=== PATIENT | female | born 1975 | race Caucasian/White ===

== ENCOUNTER → 2020-04-25 | Outpatient (CLI) | payer OTHER ==
[2014-06-13 22:59] VITALS: BP 123/82
[~2020-04-25] MED LIST: DICY20TA3 PO; ESOM20CA PO; FLUO40CA9 PO
--- NOTE | 2020-04-25 11:34 | RAD ---
EXAM: DUAL ENERGY X-RAY ABSORPTIOMETRY (DEXA). HISTORY: Postmenopausal screening. FINDINGS: The lowest measured T-score is -1.8 in the right femoral neck, based on a bone mineral dens ity of 0.722 g/cm^2. Refer to the worksheets for full detail. No comparison examinations are available. IMPRESSION: Low bone mass. Bone mineral density yields a T-score between -1.0 and -2.5. Fracture risk is increase d. FRAX was not calculated. METHODOLOGY: Dual energy x-ray absorptiometry was performed to measure bone mineral density. The foll owing analysis is based on the 2019 Official Positions of the International Society for Clinical Dens itometry: Measurements of the hips and the average of L1-L4 are preferred. When the spine and/or hip cannot be feasibly measured or interpreted, or in the setting of hyperparathyroidism, distal radial bone minera l density may be measured. The lumbar spine T-score is based on the average bone mineral density of L1-L4. In the setting of art ifact or anatomic abnormality, some lumbar levels may be excluded, and the remaining levels used for calculation. A single lumbar level is not used for diagnosis, and if only a single level is available for assessment, another anatomic site will be used to assign a diagnosis. The hip T-score is based on the bone mineral density measurement of the femoral neck or total proxima l femur of either side, whichever is lowest. Bilateral mean values are not used for diagnosis. The forearm T-score is derived from 33% of the distal radius of the nondominant forearm. For postmenopausal and perimenopausal women, and men age 50 or older, of all ethnic groups, T-scores are calculated through comparison of the current measurement with the NHANES III database standard fo r females aged 20-29 years. The lowest T-score of the evaluated anatomic sites is used to a ssign a diagnosis based on the World Health Organization densitometric classification. In premenopausal females and males younger than age 50, a Z-score is calculated based on population s pecific reference data for patient sex and self-reported ethnicity. Electronically signed by: Taina Oglesby MD (04/25/2020 11:32 AM) [id number]
--- NOTE | 2020-04-28 10:26 | RAD ---
DATE: 04/25/2020 9:19 AM EXAM: MAMMO SAMUEL SCREENING BILATERAL HISTORY: Screening COMPARISON: None. This will serve as a new baseline. Bilateral CC and MLO views of the breasts were performed. Bilateral implant displaced CC and MLO views were also obtained. Bilateral breast tomosynthesis was performed in implant displaced CC and MLO projections. This study was interpreted with the benefit of Computerized Aided Detection (CAD). FINDINGS: Breast Density: HETERO The breast parenchyma Is heterogeneously dense, which could reduce sensitivity of mammography. Breast parenchyma level C Bilateral subpectoral silicone implants are present. No suspicious masses, microcalcifications or architectural distortion is present to suggest malignancy in either breast. The visualized axillae are unremarkable. IMPRESSION: No mammographic evidence of malignancy. BI-RADS CATEGORY: 1 NEGATIVE RECOMMENDED FOLLOW-UP: 12M 12 MONTH FOLLOW-UP Annual screening mammography is recommended, unless clinically indicated sooner based on symptoms or change in physical exam. PQRS compliance statement: Patient information was entered into a reminder system with a target due date for the next mammogram. Mammography is a sensitive method for finding small breast cancers, but it does not detect them all and is not a substitute for careful clinical examination. A negative mammogram does not negate a clinically suspicious finding and should not result in delay in biopsying a clinically suspicious abnormality. "Our facility is accredited by the [employer] Mammography Program."
== END ==
LOC: MAMMO 08:14
PROVIDERS: ATTEND Physician Assistant Medical
DX: Z12.31 Encounter for screening mammogram for malignant neoplasm of breast (principal); N95.8 Other specified menopausal and perimenopausal disorders
CPT/HCPCS: 77063; 77067; 77080

== ENCOUNTER 2021-03-23 09:28 | Emergency (ER) | payer OTHER ==
[~2021-03-23] VITALS: Ht 157.5 cm; Wt 60.0 kg
[~2021-03-23 09:28] MED LIST changes: +DICY20TA PO; -DICY20TA3 PO
[2021-03-23] MEDS ORDERED: ONDANSETRON ODT 4 MG TAB.RAPDIS PO ONE (10:15)
--- NOTE | 2021-03-23 10:25 | RAD ---
AP chest. HISTORY: Short of breath AP view was taken of the chest. Lungs are free of infiltrates. Heart is normal in size. There is no p leural effusion. IMPRESSION: 1. No acute chest disease. Electronically signed by: Raffi Gonzalez MD (03/23/2021 10:22 AM) [id number]
[2021-03-23] MEDS ORDERED: guaiFENesin 300 MG/15 ML LIQUID PO PRN (10:30)
[2021-03-23 10:36] LABS: INFLUENZA A PATIENT NEGATIVE (NEGATIVE); INFLUENZA B PATIENT NEGATIVE (NEGATIVE)
[2021-03-23] MEDS ORDERED: ONDA4TAB12 PO (11:28)
--- NOTE | 2021-03-23 11:30 | PHYS DOC ---
Past History Past Medical History: Endometriosis, GERD, P.U.D, Other Additional Past Medical Histor: OCD (DANY JARRELL) Past Surgical History: Hysterectomy, Other Additional Past Surgical Histo: breast augmentation, rhinoplasty (DANY JARRELL) Smoking: Non-smoker Alcohol Use: None Drug Use: None (DANY JARRELL) General Adult EDM: Chief Complaint: SHORTNESS OF BREATH HPI: HPI: Patient is a 45 year old female who presents with 6-day history of shortness of breath, nasal congestion, body aches. She reports she became lightheaded this morning. She also reports associated nausea, however she has Tilley's esophagus and frequently has indigestion. Patient received her COVID vaccination booster about 1 week ago. Patient is incredibly anxious surrounding the possibility of having COVID-19, as her dad this past Thanksgiving as a result of infection. Patient denies fever, weakness, sputum production, chest pain, palpitations, vomiting, diarrhea. (DANY JARRELL) Review of Systems: Review of Systems: Constitutional: See HPI Eyes: Denies change in visual acuity, visual field deficits or discharge HENT: Denies ear pain, nasal congestion or sore throat Respiratory: See HPI Cardiovascular: See HPI GI: See HPI : Denies dysuria or hematuria Musculoskeletal: Denies back pain or joint pain Integument: Denies rash or other skin lesion Neurologic: Denies headache, focal weakness or sensory changes (DANY JARRELL) Current Medications: Current Meds: Current Medications Medications (Trade) Dose Ordered Sig/Mick Start Time Stop Time Status Last Admin Dose Admin Guaifenesin (Guaifenesin) 400 mg PRN 1X PRN 03/23/21 10:15 03/23/21 10:29 DC Guaifenesin (Robitussin) 400 mg PRN 1X PRN 03/23/21 10:30 03/23/21 10:56 300 MG Ondansetron HCl (Zofran Odt) 4 mg 1X ONCE 03/23/21 10:15 03/23/21 10:24 DC 03/23/21 10:28 4 MG (DANY JARRELL) Allergies: Allergies: Allergies Coded Allergies Type Severity Reaction Last Updated Verified No Known Drug Allergies 03/23/21 No (DANY JARRELL) Physical Exam: PE: Constitutional: Well developed, well nourished, no acute distress, non-toxic appearance. [] HENT: Normocephalic, atraumatic, bilateral external ears normal, oropharynx moist, no oral exudates, nose normal. [] Eyes: PERRLA, EOMI, conjunctiva normal, no discharge. [] Neck: Normal range of motion, no tenderness, supple, no stridor. [] Cardiovascular:Heart rate regular rhythm, no murmur [] Lungs & Thorax: Bilateral breath sounds clear to auscultation [] Abdomen: Bowel sounds normal, soft, no tenderness, no masses, no pulsatile masses. [] Skin: Warm, dry, no erythema, no rash. [] Back: No tenderness, no CVA tenderness. [] Extremities: No tenderness, no cyanosis, no clubbing, ROM intact, no edema. [] Neurologic: Alert and oriented X 3, normal motor function, normal sensory function, no focal deficits noted. [] Psychologic: Affect normal, judgement normal, mood normal. [] (DANY JARRELL) Current Patient Data: Labs: Laboratory Tests Test 03/23/21 10:03 Influenza Type A (Rapid) Negative (NEGATIVE) Influenza Type B (Rapid) Negative (NEGATIVE) SARS-CoV-2 Antigen (Rapid) Negative (NEGATIVE) Vital Signs: Vital Signs Date Time Temp Pulse Resp B/P (MAP) Pulse Ox O2 Delivery O2 Flow Rate FiO2 03/23/21 09:58 98.1 108 18 122/85 (97) 96 Room Air (DANY JARRELL) Radiology/Procedures: Radiology/Procedures: PROCEDURE: CHEST AP ONLY AP chest. HISTORY: Short of breath AP view was taken of the chest. Lungs are free of infiltrates. Heart is normal in size. There is no pleural effusion. IMPRESSION: 1. No acute chest disease. Electronically signed by: Raffi Gonzalez MD (03/23/2021 10:22 AM) [id number] DICTATED AND SIGNED BY: RAFFI GONZALEZ MD DATE: 03/23/21 1021 CC: DANY JARRELL; KATIE HIGHTOWER ~MTH0 0 (DANY JARRELL) Heart Score: C/O Chest Pain: No (DANY JARRELL) Course & Med Decision Making: Course & Med Decision Making Pertinent Labs and Imaging studies reviewed. (See chart for details) Patient is a 45-year-old female who presents with multiple symptoms concerning for viral syndrome, COVID-19 cannot be excluded. Work-up today will include chest x-ray, swabs for influenza A & B, COVID-19. Patient was counseled on supportive treatment measures for viral syndrome. She was given return precautions. Patient understands and is agreeable to discharge plan. (DANY JARRELL) Course & Med Decision Making I was the Attending physician on the above date of service of this patient. This patient was evaluated, examined, treated, and dispositioned from the emergency department by the mid-level practitioner. Although I was working at the time , no assistance was requested. Electronically signed, Atul Skinner DO (ATUL SKINNER DO) Claudine Disclaimer: Claudine Disclaimer: This electronic medical record was generated, in whole or in part, using a voice recognition dictation system. (DANY JARRELL) Departure Departure: Impression: Primary Impression: Viral syndrome Disposition: 01 HOME / SELF CARE / HOMELESS Condition: STABLE Referrals: KATIE HIGHTOWER (PCP) Additional Instructions: Follow the following supportive treatment measures: - Cool mist humidifier with plain water at bedside while you sleep - Mucinex (guaifenesin) per box instructions - Zofran (ondandestron) every 6-8h for nausea - Alternate ibuprofen and acetaminophen every four hours for body aches/fever /headache If antibiotics were prescribed, take them as directed. You have been tested for or diagnosed with COVID-19 infection. It is an infection caused by a new type of coronavirus. COVID-19 will cause cold-like or mild flu symptoms in most. It can cause more severe symptoms like problems breathing in some. There is no treatment for COVID-19. The body will clear the infection over time. Self-care will help to ease discomfort. Steps to Take: - Rest as needed. - Choose healthy foods including fruits and vegetables. Drink water throughout the day. - Get plenty of sleep each night. - If you smoke, try to quit. It may ease breathing. - Avoid alcohol. - Keep Others Healthy - The virus can spread to others. Droplets are released every time you sneeze o r cough. The droplets can get into the mouth, nose, or eyes of people near you and lead to infection. To lower the chances of spreading COVID-19 to others: Stay at home until your doctor has said it is safe to leave. If you tested positive this will mean staying isolated until both of the following are true: - At least 7 days have passed since the start of illness. - You are free of fever for at least 72 hours without the use of medicine. During this time: - Avoid public areas, events, or transportation. Do not return to work or school until your doctor has said it is safe to do so. - Call ahead if you need to go to a medical center. Let them know you may have COVID-19. It will help them guide you where to go. They may also ask you to wear a facemask when you come to the office. - If you call for emergency medical services, let them know you may have COVID- 19. While at home: - Try to avoid close contact with others. Stay about 6 feet away. - If possible, spend most of your time in a separate room from others. - Use a face mask if you will be in close contact with others such as sharing a room or vehicle. - Have someone wipe down common surfaces in the home. Use household hotel lobby concierge every day on areas like doorknobs, counters, or sinks. - Cough or sneeze into a tissue. Throw the tissue away right after use. If a tissue is not available, cough or sneeze into your elbow. - Wash your hands often. Wash them after sneezing or coughing. Use soap and water and wash or at least 20 seconds. Alcohol based hand final cleaner can be used if soap and water is not available. - Do not prepare food for others. Avoid sharing personal items like forks, spoons, or toothbrushes. - Avoid close contact with pets while you are sick. There is no evidence of the virus passing to pets. This is a safety step until more is known about this virus. - Isolation can be frustrating. Social interaction can help. Keep in touch with friends and family through phone and tech options. You can still interact with others in your home, just keep a safe distance of about 6 feet. Follow-up: - Your doctors office will check in with you to see if there are any changes in your health. - You may be asked to keep track of symptoms to share with them. They will also let you know when you are clear to be in public again. Contact your doctor if your recovery is not going as you expect. Get emergency care if you have problems such as: - Trouble breathing with oxygen saturation <90% - Nonstop chest pain or pressure - Changes in awareness, confusion, or problems waking - Lips or face have bluish color - Worsening of symptoms If you think you have an emergency, call for emergency medical services right away. As taken from [facility] Ondansetron (ONDANSETRON ODT) 4 Mg Tab.rapdis 1 TAB PO PRN Q6-8HRS for n/v, #20 TAB Prov: DANY JARRELL 03/23/21 DANY JARRELL Mar 23, 2021 11:29 ATUL SKINNER DO Mar 23, 2021 15:19
[2021-03-23 11:35] VITALS: BP 116/77
== END 2021-03-23 11:35 | disposition home or self-care (01) ==
LOC: ER 09:28
DX: U07.1 COVID-19 (principal); B34.9 Viral infection, unspecified; K21.9 Gastro-esophageal reflux disease without esophagitis; Z87.11 Personal history of peptic ulcer disease; Z90.710 Acquired absence of both cervix and uterus
CPT/HCPCS: 71045; 87426; 87804; 99284; C9803; Q0162; U0003

== ENCOUNTER 2021-04-23 17:47 | Emergency (ER) | payer OTHER ==
[~2021-04-23] VITALS: Ht 157.5 cm; Wt 63.6 kg
[~2021-04-23 17:47] MED LIST changes: +ONDA4TAB12 PO
[2021-04-23 18:05] VITALS: BP 108/73
--- NOTE | 2021-04-23 18:27 | PHYS DOC ---
Past History Past Medical History: Endometriosis, GERD, P.U.D, Other Additional Past Medical Histor: OCD (TONYA CHANDLER APRN) Past Surgical History: Hysterectomy Additional Past Surgical Histo: breast augmentation, rhinoplasty (TONYA CHANDLER APRN) Smoking: Non-smoker Alcohol Use: None Drug Use: None (TONYA CHANDLER APRN) General Adult EDM: Chief Complaint: FOOT INJURY PAIN HPI: HPI: Patient is a 45-year-old female who presents to the emergency department today for left medial ankle pain after she twisted her foot and fell down 3 steps on Tuesday. Patient reports now the pain is radiating from her medial aspect of the her ankle. She rates the pain 6 out of 10. No treatment prior to arrival. Patient is able to bear weight and ambulate with a steady gait. She denies any decreased range of motion but does report increased swelling and bruising to her ankle. (TONYA CHANDLER APRN) Review of Systems: Review of Systems: Musculoskeletal: See HPI Integument: See HPI Neurologic: See HPI (TONYA CHANDLER APRN) Allergies: Allergies: Allergies Coded Allergies Type Severity Reaction Last Updated Verified No Known Drug Allergies 04/23/21 No (TONYA CHANDLER APRN) Physical Exam: PE: Constitutional: Well developed, well nourished, no acute distress, non-toxic appearance. [] HENT: Normocephalic, atraumatic, bilateral external ears normal, oropharynx moist, no oral exudates, nose normal. [] Eyes: PERRL, EOMI, conjunctiva normal, no discharge. [] Neck: Normal range of motion, no stridor Cardiovascular: Normal peripheral perfusion Lungs & Thorax: No work of breathing, no tachypnea Abdomen: Soft and flat Skin: Warm, dry, no erythema, no rash. [] Back: Normal range of motion Extremities: No tenderness, no cyanosis, no clubbing, ROM intact, no edema. [] Left ankle: Ecchymosis noted to lateral aspect of foot, swelling noted to entire foot and ankle, range of motion intact, neuro intact, no crepitus, no obvious deformity Neurologic: Alert and oriented X 3, normal motor function, normal sensory function, no focal deficits noted. [] Psychologic: Affect normal, judgement normal, mood normal. [] (TONYA CHANDLER APRN) Current Patient Data: Vital Signs: Vital Signs Date Time Temp Pulse Resp B/P (MAP) Pulse Ox O2 Delivery O2 Flow Rate FiO2 04/23/21 18:05 97.7 92 18 108/73 (85) 99 Room Air (TONYA CHANDLER APRN) EKG: EKG: [] (TONYA CHANDLER APRN) Radiology/Procedures: Radiology/Procedures: []PROCEDURE: ANKLE LEFT 3V XR EXAM OF ANKLE_LEFT 3V History: Ankle pain. Comparison: None. Technique: 3 views of the left ankle Findings: Osseous mineralization is normal. No acute fracture or dislocaton. The ankle mortise and talar dome are intact. No significant degenerative changes. Soft tissues are unremarkable. Impression: 1. No acute osseous abnormality of the left ankle. Electronically signed by: Dominic Lowery MD (04/23/2021 6:30 PM) [facility] DICTATED AND SIGNED BY: DOMINIC LOWERY MD DATE: 04/23/211828 CC: EMERGENCY,DEPARTMENT; TONYA CHANDLER APRN; KATIE HIGHTOWER ~MTH0 0 (TONYA CHANDLER APRN) Heart Score: C/O Chest Pain: N/A Risk Factors: Risk Factors: DM, Current or recent (<one month) smoker, HTN, HLP, family history of CAD, obesity. Risk Scores: Score 0 - 3: 2.5% MACE over next 6 weeks - Discharge Home Score 4 - 6: 20.3% MACE over next 6 weeks - Admit for Clinical Observation Score 7 - 10: 72.7% MACE over next 6 weeks - Early Invasive Strategies (TONYA CHANDLER APRN) Course & Med Decision Making: Course & Med Decision Making Pertinent Labs and Imaging studies reviewed. (See chart for details) [] Patient presents to the emergency department after twisting her left ankle on Tuesday. X-ray was performed that showed no acute fracture. Patients ankle placed in dominic wrap and she was educated on rice protocol. Patient treated with pain medication. I discussed with patient all findings and diagnostic testing as well as the need to follow-up with PCP for further evaluation and treatment or return to the ER if any new or worsening symptoms. Strict return precautions were also discussed at length. Patient voiced understanding and agreement with the plan. Patient is hemodynamically stable at the time of disposition. (TONYA CHANDLER APRN) Course & Med Decision Making Did not see or evaluate patient. Did not discuss patient with REAL ESTATE CLERK. Generally agree with REAL ESTATE CLERK's work-up and disposition per note (JULITO WHITE MD) Aleishaon Disclaimer: Claudine Disclaimer: This electronic medical record was generated, in whole or in part, using a voice recognition dictation system. (TONYA CHANDLER APRN) Departure Departure: Impression: Primary Impression: Ankle sprain Qualified Codes: S93.402A - Sprain of unspecified ligament of left ankle, initial encounter Disposition: HOME / SELF CARE / HOMELESS Condition: GOOD Referrals: KATIE HIGHTOWER (PCP) Patient Instructions: RICE - Routine Care for Injuries Additional Instructions: You were seen in the ER today for left ankle pain after twisting it. The xray was negative for acute fracture. This will likely improve over time. Your symptoms may be improved by something called the rice protocol. This is rest, ice, compression, elevation. Please follow-up when doing intense exercises that may make the pain worse. Sometimes gentle stretching can provide relief, but be careful to injury. It is important to perform gentle range of motion exercises to prevent stiff joints and chronic pain. Use ice packs over the aff ected areas to help decrease your pain. For the first 24 hours you can apply ice 20 minutes on 20 minutes off for 4 times per day. Sometimes compression such as the use of an Dominic wrap can help with the swelling. You may also elevate the affected area to help with the swelling. You can take Tylenol and/ibuprofen for any pain. Follow-up with your primary care provider tomorrow regarding your ER visit. Return to the emergency department if you develop any new injuries, worsening of your pain, inability to bear weight or walk, decreased range of motion or decreased sensation in your foot. TONYA CHANDLER APRN Apr 23, 2021 18:26 JULITO WHITE MD Apr 23, 2021 19:19
--- NOTE | 2021-04-23 18:33 | RAD ---
XR EXAM OF ANKLE_LEFT 3V History: Ankle pain. Comparison: None. Technique: 3 views of the left ankle Findings: Osseous mineralization is normal. No acute fracture or dislocaton. The ankle mortise and talar dome a re intact. No significant degenerative changes. Soft tissues are unremarkable. Impression: 1. No acute osseous abnormality of the left ankle. Electronically signed by: Dominic Contreras MD (04/23/2021 6:30 PM) [facility]
[2021-04-23] MEDS ORDERED: HYDROcodone/APAP 5/325MG 1 TAB TABLET ONE (18:42)
[2021-04-23] MEDS ORDERED: HYDROcodone/APAP 5/325MG 1 TAB TABLET PO ONE (18:45)
== END 2021-04-23 18:50 | disposition home or self-care (01) ==
LOC: ER 17:47
DX: S93.402A Sprain of unspecified ligament of left ankle, initial encounter (principal); K21.9 Gastro-esophageal reflux disease without esophagitis; Z87.11 Personal history of peptic ulcer disease; W10.8XXA Fall (on) (from) other stairs and steps, initial encounter; Y93.89 Activity, other specified; Y92.89 Other specified places as the place of occurrence of the external cause; Y99.8 Other external cause status
CPT/HCPCS: 73610; 99283

== ENCOUNTER → 2021-07-24 | Outpatient (CLI) | payer OTHER ==
--- NOTE | 2021-07-25 15:17 | RAD ---
CLINICAL HISTORY: Reason: ABDOMEN PAIN 1.5 MIN OF FLUORO / Spl. Instructions: / History: COMPARISON: None TECHNIQUE: Fluoroscopically-guided upper gastrointestinal series with small bowel follow-through perf ormed with thick and thin consistency barium including use of effervescent crystals. FINDINGS: Sales Representative Health Insurance: Initial plain film of the abdomen reveals normal stool and air pattern. No abnormal calcificat ions are seen. The esophagus demonstrated normal peristalsis and there were no intrinsic or extrinsic filling defect s or diverticula seen. The gastroesophageal junction was normal in appearance. The stomach distende d and emptied well with no gastric outlet obstruction. The duodenal bulb and sweep appeared normal. The duodenojejunal junction is in its normal position. The proximal jejunal loops were seen in the left upper abdomen and appeared normal. On intermittent fluoroscopy there was no evidence of gastroe sophageal reflux. Small hiatal hernia. The serial films of barium traversing the small bowel to the cecum reveal a normal transit time. Con trast material is present in the colon after 90 minutes. Small bowel mucosal pattern and caliber is normal throughout. There is no evidence of obstruction o r filling defect. The terminal ileum appears normal. Fluoroscopy time: 1.5 minutes. IMPRESSION: 1. There is normal appearance of esophagus and stomach. 2. Grossly normal small bowel follow-through examination with normal transit time through the small bowel with contrast in the colon zat approximately 90 minutes. Electronically signed by: Haim Burnham MD (07/25/2021 3:15 PM) [facility]
== END ==
LOC: DXRAD 09:03
PROVIDERS: ATTEND Internal Medicine Gastroenterology
DX: K44.9 Diaphragmatic hernia without obstruction or gangrene (principal); R10.9 Unspecified abdominal pain; R11.0 Nausea
CPT/HCPCS: 74246; 74248